=== PATIENT | male | born 2000 | race Hispanic/Latino ===

== ENCOUNTER 2020-04-22 19:10 | Emergency (ER) | payer OTHER ==
[~2020-04-22] VITALS: Ht 170.2 cm; Wt 84.1 kg
[~2020-04-22 19:10] MED LIST: IBUP-1022 PO; REGL10TA6 PO
[2020-04-22] MEDS ORDERED: LORazepam 2 MG/ML VIAL IV STA (19:26)
[2020-04-22] MEDS ORDERED: NS 1,000 ML IV ONE ×2 (19:30→21:45)
[2020-04-22 19:55] LABS: HEMATOCRIT 44.1 % (42.0-52.0); HEMOGLOBIN 14.8 g/dl (13.5-17.5); MEAN CORPUSCULAR HEMOGLOBIN 28.6 pg (27.0-33.0); MEAN CORPUSCULAR HGB CONC 33.6 g/dl (32.0-36.5); MEAN CORPUSCULAR VOLUME 85.3 fl (80.0-96.0); PLATELET COUNT, AUTOMATED 239 10^3/uL (150-450); RED BLOOD COUNT 5.17 10^6/uL (4.30-6.10); WHITE BLOOD COUNT 9.9 10^3/uL (4.0-10.0)
[2020-04-22 20:30] LABS: ACETAMINOPHEN LEVEL < 2.0 UG/ML (10.0-30.0); ALBUMIN 4.2 GM/DL (3.2-5.2); ALT/SGPT 88 U/L (12-78); BILIRUBIN,DIRECT < 0.1 MG/DL (0.0-0.2); BILIRUBIN,TOTAL 0.2 MG/DL (0.2-1.0); BLOOD UREA NITROGEN 14 MG/DL (7-18); CALCIUM LEVEL 9.2 MG/DL (8.5-10.1); CARBON DIOXIDE LEVEL 27 MEQ/L (21-32); CHLORIDE LEVEL 107 MEQ/L (98-107); CPK CREATINE PHOSPHOKINASE 437 U/L (39-308); ETHYL ALCOHOL (ETHANOL) < 0.003 % (0.000-0.010); GLUCOSE, FASTING 101 MG/DL (70-100); POTASSIUM SERUM 3.7 MEQ/L (3.5-5.1); SALICYLATE LEVEL < 1.7 MG/DL (5.0-30.0); SODIUM LEVEL 139 MEQ/L (136-145); TOTAL PROTEIN 7.7 GM/DL (6.4-8.2)
[2020-04-22 21:18] LABS: AMPHETAMINES LEVEL URINE NEGATIVE (NEGATIVE); BARBITURATES URINE NEGATIVE (NEGATIVE); BENZODIAZEPINES URINE NEGATIVE (NEGATIVE); CANNABINOIDS URINE POSITIVE (NEGATIVE); COCAINE METABOLITE URINE NEGATIVE (NEGATIVE); METHADONE URINE NEGATIVE (NEGATIVE); OPIATES URINE NEGATIVE (NEGATIVE); PHENCYCLIDINE URINE NEGATIVE (NEGATIVE)
[2020-04-22 23:15] VITALS: BP 132/74
--- NOTE | 2020-04-23 06:39 | ECGEPIP ---
[facility] - ED Test Date: 2020-04-22 Pat Name: EDUARDO OLIVERA Department: Room: - Gender: Male [employer]ist: : [id number] Requested By: ANUP GIBSON Order Number: [id number] Reading MD: Chava Armendariz Measurements Intervals [place] Rate: 79 P: 41 UT: 108 QRS: 47 QRSD: 106 T: 7 QT: 357 QTc: 411 Interpretive Statements SINUS RHYTHM WITH SINUS ARRHYTHMIA WITH SHORT UT INTERVAL Nonspecific intraventricular conduction delay NONSPECIFIC ST T WAVE CHANGES NO PRIOR ECG FOR COMPARISON Electronically Signed on 04-23-2020 6:38:45 EDT by Chava Armendariz
== END 2020-04-22 23:51 | disposition home or self-care (01) ==
LOC: M ED 19:10
DX: F15.10 Other stimulant abuse, uncomplicated (principal)
CPT/HCPCS: 80048; 80076; 80307; 82550; 84443; 85027; 93005; 96361; 96374; 99284; G0480; J2060